=== PATIENT | female | born 1990 | race American Indian/Alaskan Native ===

== ENCOUNTER 2021-01-07 22:22 | Emergency (ER) | payer MEDICAID ==
[2021-01-07 23:14] VITALS: BP 136/65
[2021-01-07] MEDS ORDERED: ACETAMINOPHEN 500 MG TAB PO ONE (23:33)
[2021-01-08 00:26] LABS: Basophils % (Auto) 0.4 % (0.0-1.8); Eosinophils % (Auto) 0.6 % (0.0-4.3); Hematocrit 37.1 % (30.3-42.9); Lymphocytes # (Auto) 2.6 K/mm3 (1.2-5.4); Lymphocytes % (Auto) 40.3 % (13.4-35.0); Mean Corpuscular HGB Conc 33 % (30-34); Mean Corpuscular Volume 88 fl (79-97); Monocytes # (Auto) 0.4 K/mm3 (0.0-0.8); Monocytes % (Auto) 5.8 % (0.0-7.3); Platelet Count 207 K/mm3 (140-440); Red Cell Distribution Width 13.9 % (13.2-15.2)
[2021-01-08 00:27] LABS: Alanine Aminotransferase 10 units/L (7-56); Albumin 4.2 g/dL (3.9-5); Blood Urea Nitrogen 9 mg/dL (7-17); Calcium 9.2 mg/dL (8.4-10.2); Hemolysis Index 3
[2021-01-08 00:33] LABS: BUN/Creatinine Ratio 13
[2021-01-08 01:57] LABS: Calcium Oxalate Crystals,Urine FEW; Mucus,Urine FEW /HPF
[2021-01-08 01:59] LABS: Bilirubin,Urine Color Interference (Negative); Color,Urine Red (Yellow)
[2021-01-08 02:00] LABS: Blood,Urine TNR (Negative); PH,Urine TNR (5.0-7.0); Protein,Urine TNR mg/dL (Negative); Urobilinogen,Urine TNR mg/dL (<2.0)
[2021-01-08 02:01] LABS: Ictotest,Urine TNR (Negative)
[2021-01-08] MEDS ORDERED: cephALEXin 500 MG CAP PO ONE (02:04)
--- NOTE | 2021-01-08 02:09 | Emergency Department Report ---
ED Female HPI - General Chief complaint: Vaginal Bleeding Stated complaint: AB PAIN Source: patient Mode of arrival: Ambulatory Limitations: No Limitations - History of Present Illness Initial comments: Patient is a A0 30-year-old -[place] female with no past medical history who presents to the ED with complaint of acute onset pelvic pain and heavy vaginal bleeding for the last 12 hours. Patient stated that she has not had any tests at home. Patient states that her LMP was December 09, 2020 and that she suspects that she may be because of the heavy vaginal bleeding. Patient states that the pain is persistent and constant. Patient denies dysuria, urinary frequency and urgency, chest pain, shortness of breath, nausea and vomiting, diarrhea, low back pain, headache, or lightheadedness. MD Complaint: vaginal bleeding, pelvic pain (Pelvic pain) -: Sudden, hour(s) (12) Location: suprapubic, other (Vaginal) Radiation: non-radiating Severity: severe Severity scale (0 -10): 7 Quality: cramping, sharp Consistency: intermittent Improves with: none Worsens with: menstrual period Are you Now?: No (Unsure) Last Menstrual Period: 12/09/20 EDC: 09/15/21 Associated Symptoms: denies other symptoms, vaginal bleeding, abdominal pain (Suprapubic pain). denies: vaginal discharge, headaches, loss of appetite, dysuria, shortness of breath, weakness - Related Data Sexually active: Yes : 1 Para: 1 A: 0 Previous Rx's Medication Instructions Recorded Last Taken Type Docusate Sodium [Colace CAP] 100 mg PO BID #60 capsule 12/14/15 Unknown Rx Ferrous Sulfate [Feosol 325 MG tab] 325 mg PO TID #90 tablet 12/14/15 Unknown Rx Ibuprofen [Motrin 600 MG tab] 600 mg PO Q6H #50 tablet 12/14/15 Unknown Rx Ibuprofen [Motrin] 600 mg PO Q8H PRN #30 tablet 01/08/21 Unknown Rx cephALEXin [Keflex] 500 mg PO Q8HR #30 cap 01/08/21 Unknown Rx Allergies Allergy/AdvReac Type Severity Reaction Status Date / Time Cherries Allergy Itching Uncoded 12/12/15 20:15 Mustard Allergy Anaphylaxis Uncoded 12/12/15 20:15 ED Review of Systems ROS: Stated complaint: AB PAIN Other details as noted in HPI Constitutional: denies: chills, fever Eyes: denies: eye pain, eye discharge, vision change ENT: denies: ear pain, throat pain Respiratory: denies: cough, shortness of breath, wheezing Cardiovascular: denies: chest pain, palpitations Endocrine: no symptoms reported Gastrointestinal: abdominal pain (Suprapubic pain). denies: nausea, vomiting, diarrhea Genitourinary: abnormal menses (Heavy vaginal bleeding). denies: urgency, dysuria, discharge Musculoskeletal: denies: back pain, joint swelling, arthralgia Skin: denies: rash, lesions Neurological: denies: headache, weakness, paresthesias Psychiatric: denies: anxiety, depression Hematological/Lymphatic: denies: easy bleeding, easy bruising ED Past Medical Hx - Past Medical History Previous Medical History?: Yes Hx Congestive Heart Failure: No Hx Diabetes: Yes (Gestational Diabetes) Hx Deep Vein Thrombosis: No Hx Renal Disease: No Hx Sickle Cell Disease: No Hx Seizures: No Hx Asthma: No Hx COPD: No Hx HIV: No - Surgical History Past Surgical History?: No - Social History Smoking Status: Never Smoker - Medications Home Medications: Home Medications Medication Instructions Recorded Confirmed Last Taken Type Docusate Sodium [Colace CAP] 100 mg PO BID #60 capsule 12/14/15 Unknown Rx Ferrous Sulfate [Feosol 325 MG tab] 325 mg PO TID #90 tablet 12/14/15 Unknown Rx Ibuprofen [Motrin 600 MG tab] 600 mg PO Q6H #50 tablet 12/14/15 Unknown Rx Ibuprofen [Motrin] 600 mg PO Q8H PRN #30 tablet 01/08/21 Unknown Rx cephALEXin [Keflex] 500 mg PO Q8HR #30 cap 01/08/21 Unknown Rx ED Physical Exam - General Limitations: No Limitations General appearance: alert, in no apparent distress - Head Head exam: Present: atraumatic, normocephalic, normal inspection - Eye Eye exam: Present: normal appearance, PERRL, EOMI Pupils: Present: normal accommodation - ENT ENT exam: Present: normal exam, normal orophraynx, mucous membranes moist, TM's normal bilaterally, normal external ear exam - Neck Neck exam: Present: normal inspection, full ROM - Respiratory Respiratory exam: Present: normal lung sounds bilaterally. Absent: respiratory distress, wheezes, rales, rhonchi, chest wall tenderness, accessory muscle use, decreased breath sounds, prolonged expiratory - Cardiovascular Cardiovascular Exam: Present: normal rhythm, tachycardia, normal heart sounds. Absent: systolic murmur, diastolic murmur, rubs, gallop - GI/Abdominal GI/Abdominal exam: Present: soft, tenderness (Palpable mild suprapubic tenderness), normal bowel sounds. Absent: guarding, rebound, hyperactive bowel sounds, organomegaly - Extremities Exam Extremities exam: Present: normal inspection, full ROM, normal capillary refill - Back Exam Back exam: Present: normal inspection, full ROM. Absent: tenderness, CVA tenderness (R), CVA tenderness (L), muscle spasm, paraspinal tenderness, vertebral tenderness - Neurological Exam Neurological exam: Present: alert, oriented X3, CN II-XII intact, normal gait, reflexes normal - Psychiatric Psychiatric exam: Present: normal affect, normal mood, anxious - Skin Skin exam: Present: warm, dry, intact, normal color. Absent: rash ED Course Vital Signs 01/07/21 23:11 Temperature 122.0 F H Pulse Rate 69 Respiratory 18 Rate Blood Pressure 136/65 O2 Sat by Pulse 99 Oximetry ED Medical Decision Making - Lab Data Result diagrams: 01/07/21 23:45 01/07/21 23:45 - Medical Decision Making This is a A0 30-year-old -[place] female with no past medical history who presents to the ED with complaint of acute onset pelvic pain and heavy vaginal bleeding for the last 12 hours. Patient stated that she has not had any tests at home. Patient states that her LMP was December 09, 2020 and that she suspects that she may be because of the heavy vaginal bleeding. Patient states that the pain is persistent and constant. In the ED, patient is alert and oriented x3 and is not in any distress but anxious in triage. Patient is however tachycardic and afebrile in triage. Lab test results were reviewed and are all nonactionable, and hCG quant is negative. Urinalysis showed significant urinary tract infection. Patient was treated for pain in the ED and also given initial oral antibiotics Keflex 1 g p.o. x1. On reevaluation, patient's pain resolved medication. Patient symptoms are due to her regular menstrual cycle. Patient was discharged home and advised to follow- up with her [employer] physician in 7 to 10 days for reevaluation or return to the ED immediately if symptoms get worse. - Differential Diagnosis Dysmenorrhea, menorrhagia, UTI, , ovarian cyst, uterine fibroids Critical care attestation.: If time is entered above; I have spent that time in minutes in the direct care of this critically ill patient, excluding procedure time. ED Disposition Clinical Impression: Severe dysmenorrhea, Acute urinary tract infection Menorrhagia Qualifiers: Menorrhagia type: with regular cycle Qualified Code(s): N92.0 - Excessive and frequent menstruation with regular cycle Disposition: 01 HOME / SELF CARE / HOMELESS Is pt being admited?: No Does the pt Need Aspirin: No Condition: Stable Instructions: Urinary Tract Infection, Adult, [id number], Menorrhagia, [id number], Abnormal Uterine Bleeding, [id number], Dysmenorrhea, [id number] Additional Instructions: All lab test results were reviewed and are all nonactionable except for urinalysis that showed significant urinary tract infection. test is negative by blood. Therefore your symptoms are likely due to irregular menstrual cycle causing significant pain and heavy bleeding. Therefore take medications with food, drink plenty of fluids and follow-up with your [employer] physician in 7 to 10 days for reevaluation. Return to the ED immediately if symptoms get worse with Prescriptions: cephALEXin [Keflex] 500 mg PO Q8HR #30 cap Ibuprofen [Motrin] 600 mg PO Q8H PRN #30 tablet PRN Reason: Pain Referrals: BELLA CAMARILLO MD [Staff Physician] - 3-5 Days Forms: Work/School Release Form(ED) Time of Disposition: 02:12 Print Language: STATELESS
== END 2021-01-08 00:21 | disposition home or self-care (01) ==
LOC: ED 22:22
DX: N94.6 Dysmenorrhea, unspecified (principal); N39.0 Urinary tract infection, site not specified; Z91.018 Allergy to other foods; Z79.899 Other long term (current) drug therapy
CPT/HCPCS: 36415; 80053; 81001; 84702; 85025; 87086; 99283

== ENCOUNTER 2021-08-26 20:08 | Emergency (ER) | payer MEDICAID ==
[2021-08-26 20:32] VITALS: BP 116/56
--- NOTE | 2021-08-26 21:17 | XRay Report ---
CHEST 2 VIEWS INDICATION / CLINICAL INFORMATION: CHEST PAIN. COMPARISON: None available. FINDINGS: SUPPORT DEVICES: None. HEART / MEDIASTINUM: No significant abnormality. LUNGS / PLEURA: No significant pulmonary or pleural abnormality. No pneumothorax. ADDITIONAL FINDINGS: No significant additional findings. IMPRESSION: 1. No acute findings. Signer Name: Sunil Carballo DO Signed: 08/26/2021 9:13 PM Workstation Name: [id number]
--- NOTE | 2021-08-28 13:35 | Electrocardiograph Report ---
[facility] Test Date: 2021-08-26 Test Time: 20:19:23 Pat Name: TIFFANY GLOVER Department: Room: Gender: F Communications Equipment Operator: ALEXX : 1990 Requested By: AFUA ROLLE Order Number: [id number] Reading MD: Helio Benjamin Measurements Intervals [place] Rate: 77 P: 40 NM: 165 QRS: 34 QRSD: 70 T: 4 QT: 345 QTc: 392 Interpretive Statements Sinus rhythm No previous ECG available for comparison Electronically Signed On 08-28-2021 13:34:55 EDT by Helio Benjamin
== END 2021-08-26 22:00 | disposition left against medical advice (07) ==
LOC: ED 20:08
DX: R07.9 Chest pain, unspecified (principal); R06.02 Shortness of breath; Z53.21 Procedure and treatment not carried out due to patient leaving prior to being seen by health care provider
CPT/HCPCS: 71046; 93005